=== PATIENT | female | born 1960 | race African-American/Black ===

== ENCOUNTER → 2019-09-28 12:11 | Outpatient (CLI) | payer BC, SELFPAY ==
--- NOTE | ~2019-09-28 | MM_ITS ---
EXAMINATION: MM screening [facility] w [facility] HISTORY: Screening mammogram TECHNIQUE: Craniocaudal and mediolateral oblique 3-D tomosynthesis images were obtained and synthetic 2-D images were generated. CAD analysis was submitted and interpreted. COMPARISON: 03/18/2018 bilateral digital screening mammogram BREAST PARENCHYMAL COMPOSITION: There are scattered areas of fibroglandular density. FINDINGS: There are multiple bilateral intramammary and axillary low-density circumscribed opacities of variable size most consistent with benign intramammary lymph node. There is no evidence of suspici ous mass, calcification, or architectural distortion to suggest malignancy in either breast. There adhikari s been no suspicious interval change. IMPRESSION: 1. No mammographic evidence of malignancy. 2. Recommend routine screening mammography in one year. BI-RADS Category 2: Benign finding(s). Reviewed, dictated and finalized at location A.
== END ==
PROVIDERS: PCP Registered Nurse; Visit Provider Obstetrics & Gynecology
DX: Z12.31 Encounter for screening mammogram for malignant neoplasm of breast (principal)
CPT/HCPCS: 77063; 77067

== ENCOUNTER → 2020-04-08 15:44 | Outpatient (CLI) | payer BC, SELFPAY ==
--- NOTE | ~2020-04-08 | XR_ITS ---
EXAMINATION: XR chest 2V EXAM DATE: 04/08/2020 16:01 INDICATION: Idiopathic retrocardiac. TECHNIQUE: Frontal and lateral projections of the chest obtained and reviewed. There is no prior apolonia dy for comparison. FINDINGS: The lungs are clear. There are no pleural effusions. The cardiomediastinal silhouette is within normal limits. There is no pneumothorax suspected. The bones and soft tissues are unremarkab le. IMPRESSION: Unremarkable chest x-ray exam. Reviewed, dictated and finalized at location B. [employer]
== END ==
DX: L50.1 Idiopathic urticaria (principal)
CPT/HCPCS: 71046

== ENCOUNTER → 2020-11-01 17:03 | Outpatient (CLI) | payer BC, SELFPAY ==
--- NOTE | ~2020-11-01 | MM_ITS ---
EXAMINATION: MM screening [facility] BI w [facility]al HISTORY: Screening TECHNIQUE: Craniocaudal and mediolateral oblique 3-D tomosynthesis images were obtained and synthetic 2-D images were generated. CAD analysis was submitted and interpreted. COMPARISON: Comparison to multiple prior studies sequentially, with oldest reviewed study dated 03/18. BREAST PARENCHYMAL COMPOSITION: There are scattered areas of fibroglandular density. FINDINGS: There are developing masses in the upper outer quadrants of both breasts. There are no susp icious calcifications or architectural distortion. IMPRESSION: 1. Developing bilateral breast masses, upper outer quadrants, middle third. 2. Additional mammographic views and possible breast ultrasound are recommended. BI-RADS Category 0: Incomplete: Needs additional imaging evaluation. Reviewed, dictated and finalized at location A. IMPRESSION: 1. Developing bilateral breast masses, upper outer quadrants, middle third. 2. Additional mammographic views and possible breast ultrasound are recommended . BI-RADS Category 0: Incomplete: Needs additional imaging evaluation.
== END ==
PROVIDERS: PCP Registered Nurse; Visit Provider Registered Nurse
DX: Z12.31 Encounter for screening mammogram for malignant neoplasm of breast (principal); R92.8 Other abnormal and inconclusive findings on diagnostic imaging of breast
CPT/HCPCS: 77063; 77067

== ENCOUNTER 2021-02-10 00:21 | Day surgery (SDC) | payer BC, SELFPAY ==
[2021-01-30 15:36] VITALS: BMI 29.9
--- NOTE | 2021-02-09 13:30 | PM.HPGS ---
History of Present Illness History of Present Illness Consent: Risks, benefits, and alternatives have been discussed and questions answered. Patient agrees to proceed with procedure. Chief complaint: family hx of colon ca, neoplasm screening Narrative: Tere Colvin is a 60 year old female referred for colon cancer screening. She has a family history of colon cancer Review of Systems Review of Systems: All systems reviewed & are unremarkable except as noted in HPI and below PMFSH Past Medical History Medical History HTN (hypertension) JAMES on CPAP Overweight SLE (systemic lupus erythematosus) Surgical History Surgical History History of cholecystectomy History of total knee arthroplasty Social History Social History Smoking status: Never smoker Living arrangements: with family Spiritual care concerns: No Meds Home Medications and Allergies Home Medications Medication Instructions Recorded Confirmed Type alprazolam 0.5 mg PO TID PRN 01/30/21 02/10/21 History cetirizine [Zyrtec] 10 mg PO DAILY PRN 01/30/21 02/10/21 History duloxetine 30 mg PO DAILY 01/30/21 02/10/21 History hydroxychloroquine [Plaquenil] 200 mg PO BID 01/30/21 02/10/21 History isosorbide mononitrate 30 mg PO DAILY 01/30/21 02/10/21 History meclizine 12.5 mg PO TID PRN 01/30/21 02/10/21 History meloxicam 15 mg PO DAILY 01/30/21 02/10/21 History montelukast 10 mg PO DAILY 01/30/21 02/10/21 History potassium chloride 20 meq PO DAILY 01/30/21 02/10/21 History Allergies Allergy/AdvReac Type Severity Reaction Status Date / Time latex Allergy Rash Verified 02/10/21 06:50 Penicillins Allergy Hives Verified 02/10/21 06:50 shellfish derived Allergy Numbness Verified 02/10/21 06:50 Sulfa (Sulfonamide Allergy Rash Verified 02/10/21 06:50 Antibiotics) Exam Resp: Auscultation: clear to auscultation bilaterally Cardio: Rate: regular rate Rhythm: regular rhythm GI: GI Palp: Yes Soft to palpation and No Tenderness to palpation present (GI) Assessment and Plan Assessment and plan (1) Colon cancer screening: Code(s): Z12.11 - Encounter for screening for malignant neoplasm of colon Status: Acute Assessment and Plan: Colonoscopy with possible biopsy or polypectomy or cautery or injection of substances.
[2021-02-10 06:51] VITALS: BP 153/96; PULSE 116; RESP 18; TEMP 36.4; O2SAT 97; BMI 29.5
[2021-02-10] MEDS: LACTATED RINGERS 1,000 ML 150 ML IV CONT (06:55)
--- NOTE | 2021-02-10 07:17 | WPDANESEPPF ---
Anes - Initial Pre Proc Eval Procedure: Operation Date: 02/10/21 08:00 Proposed Procedures p Screening Colonoscopy - Shashank Reeves MD Date/Time: 02/10/21 07:17 Surgeon: Shashank Reeves MD Pre Op Diagnosis: family hx of colon ca, neoplasm screening Patient Data Age: 60 Gender: F Height: 1.63 m Weight: 78.2 kg Last Vital Signs Temp 36.4 C L 02/10/21 06:51 Pulse 116 H 02/10/21 06:51 Resp 18 02/10/21 06:51 BP 153/96 H 02/10/21 06:51 Pulse Ox 97 02/10/21 06:51 Allergies Allergy/AdvReac Type Severity Reaction Status Date / Time latex Allergy Rash Verified 02/10/21 06:50 Penicillins Allergy Hives Verified 02/10/21 06:50 shellfish derived Allergy Numbness Verified 02/10/21 06:50 Sulfa (Sulfonamide Allergy Rash Verified 02/10/21 06:50 Antibiotics) Home Medications Medication Instructions Recorded Confirmed Type alprazolam 0.5 mg PO TID PRN 01/30/21 02/10/21 History cetirizine [Zyrtec] 10 mg PO DAILY PRN 01/30/21 02/10/21 History duloxetine 30 mg PO DAILY 01/30/21 02/10/21 History hydroxychloroquine [Plaquenil] 200 mg PO BID 01/30/21 02/10/21 History isosorbide mononitrate 30 mg PO DAILY 01/30/21 02/10/21 History meclizine 12.5 mg PO TID PRN 01/30/21 02/10/21 History meloxicam 15 mg PO DAILY 01/30/21 02/10/21 History montelukast 10 mg PO DAILY 01/30/21 02/10/21 History potassium chloride 20 meq PO DAILY 01/30/21 02/10/21 History Patient hx anesthesia problems: none Family hx anesthesia problems: none Results Review: All pre-operative results and documents have been reviewed as part of the pre-operative evaluation. [facility] Past Medical History Medical History (Updated 02/10/21 @ 07:23 by Chriss Stern MD) HTN (hypertension) JAMES on CPAP Overweight PFO (patent foramen ovale) SLE (systemic lupus erythematosus) Surgical History Surgical History (Updated 02/10/21 @ 07:23 by Chriss Stern MD) History of cholecystectomy History of total knee arthroplasty Social History Social History Smoking status: Never smoker Living arrangements: with family Spiritual care concerns: No Anes - Eval Final PreProcedure Day of Procedure 02/10/21 07:17 Patient weight: overweight Heart: regular rate and rhythm Lungs: clear to auscultation Airway: Mallampati scale class II Neurological: alert and oriented Last oral intake: >/= 8 hours ASA classification: III Emergent: no Anesthetic plan: proceed Anesthesia type and monitoring: general GIVS and standard monitoring Results Review: All pre-operative results and documents have been reviewed as part of the pre-operative evaluation. Informed Consent: The patient's anesthetic plan and its attendant risks and benefits were discussed with the patient/family/POA. Questions were solicited and answers provided to the satisfaction of the patient/family/POA.
[2021-02-10 08:21] VITALS: BP 108/61; PULSE 80; RESP 22; O2SAT 96
[2021-02-10 08:31] VITALS: BP 99/60; PULSE 74; RESP 20; O2SAT 97
[2021-02-10 08:41] VITALS: BP 121/86; PULSE 83; RESP 20; O2SAT 100
== END 2021-02-10 09:00 | disposition home or self-care (01) ==
PROVIDERS: PCP Registered Nurse; Visit Provider Internal Medicine Gastroenterology
PROC: 0DJD8ZZ Inspection of Lower Intestinal Tract, Via Natural or Artificial Opening Endoscopic (ICD-10-PCS; CPT 45378; principal; 2021-02-10 08:00)
DX: Z12.11 Encounter for screening for malignant neoplasm of colon (principal); Z80.0 Family history of malignant neoplasm of digestive organs; I10 Essential (primary) hypertension; G47.33 Obstructive sleep apnea (adult) (pediatric); Q21.1 Atrial septal defect; M32.9 Systemic lupus erythematosus, unspecified
CPT/HCPCS: 45378; J2704; J7120